=== PATIENT | female | born 2000 | race American Indian/Alaskan Native ===

== ENCOUNTER 2020-10-03 16:26 | Emergency (ER) | payer OTHER ==
[2020-10-03 16:35] VITALS: BP 131/91
--- NOTE | 2020-10-03 16:55 | Emergency Department Report ---
Blank Doc - Documentation Documentation: 20-year-old female that presents with chest pain and tightness. Denies any SOB. This initial assessment/diagnostic orders/clinical plan/treatment(s) is/are subject to change based on patient's health status, clinical progression and re- assessment by fellow clinical providers in the ED. Further treatment and workup at subsequent clinical providers discretion. Patient/guardians urged not to elope from the ED as their condition may be serious if not clinically assessed and managed. Initial orders include: 1- Patient sent to [facility] for further evaluation and treatment 2- EKG/CXR
--- NOTE | 2020-10-03 17:16 | XRay Report ---
CHEST PA AND LATERAL VIEWS INDICATION: chest pain. COMPARISON: None. FINDINGS: Support devices: None. Heart: Within normal limits. Lungs/Pleura: No acute pulmonary or pleural findings. IMPRESSION: 1. No acute findings. Signer Name: Lai Carrington MD Signed: 10/03/2020 5:11 PM Workstation Name: [id number]
--- NOTE | 2020-10-03 20:03 | Emergency Department Report ---
ED General Adult HPI - General Chief complaint: Chest Pain Stated complaint: CHESRT PAIN, HEAD PAIN, LT SHOULDER PAIN Time Seen by Provider: 10/03/20 16:54 Source: patient Mode of arrival: Ambulatory Limitations: No Limitations - History of Present Illness Initial comments: Patient is a 20-year-old female presents emergency room complaints of substernal chest pain that began 2-1/2 days ago. She states the pain is worse with movement and with lifting her arms above the head. She denies any recent travel, recent surgery, hormone use. She denies any fever, nausea, vomiting, diarrhea, cough, shortness of breath, leg swelling. No past medical history. No allergies to medications. 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 - Related Data Previous Rx's Medication Instructions Recorded Last Taken Type Acetaminophen [Tylenol] 650 mg PO Q8HR PRN #20 capsule 10/03/20 Unknown Rx Allergies Allergy/AdvReac Type Severity Reaction Status Date / Time No Known Allergies Allergy Unverified 10/03/20 16:34 ED Review of Systems ROS: Stated complaint: CHESRT PAIN, HEAD PAIN, LT SHOULDER PAIN Other details as noted in HPI Comment: All other systems reviewed and negative ED Past Medical Hx - Past Medical History Previous Medical History?: No - Surgical History Past Surgical History?: No - Medications Home Medications: Home Medications Medication Instructions Recorded Confirmed Last Taken Type Acetaminophen [Tylenol] 650 mg PO Q8HR PRN #20 capsule 10/03/20 Unknown Rx ED Physical Exam - General Limitations: No Limitations General appearance: alert, in no apparent distress - Head Head exam: Present: atraumatic, normocephalic - Eye Eye exam: Present: normal appearance - ENT ENT exam: Present: mucous membranes moist - Respiratory Respiratory exam: Present: normal lung sounds bilaterally, chest wall tenderness (reproducible mid chest wall ttp, no crepitus, no deformity, no ecchymosis, no skin changes). Absent: respiratory distress, wheezes, rales, rhonchi, stridor, accessory muscle use, decreased breath sounds, prolonged expiratory - Cardiovascular Cardiovascular Exam: Present: regular rate, normal rhythm, normal heart sounds. Absent: systolic murmur, diastolic murmur, rubs, gallop - Extremities Exam Extremities exam: Absent: pedal edema - Neurological Exam Neurological exam: Present: alert, oriented X3 - Psychiatric Psychiatric exam: Present: normal affect, normal mood - Skin Skin exam: Present: warm, dry, intact ED Course Vital Signs 10/03/20 10/03/20 16:34 22:03 Temperature 97.9 F Pulse Rate 82 78 Respiratory 16 20 Rate Blood Pressure 131/91 O2 Sat by Pulse 99 98 Oximetry ED Medical Decision Making - Lab Data Vital Signs 10/03/20 10/03/20 16:34 22:03 Temperature 97.9 F Pulse Rate 82 78 Respiratory 16 20 Rate Blood Pressure 131/91 O2 Sat by Pulse 99 98 Oximetry - EKG Data EKG shows normal: sinus rhythm, axis, intervals, QRS complexes Rate: normal - EKG Data 10/03/20 20:02 EKG is stating non specific T wave abnormalities in the anterior leads, but it appears T waves are normal in V2 and V4, do not suspect ischemia or infarction no STEMI - Radiology Data Radiology results: report reviewed Ordering Physician: ED MD LUCIA Date of Service: 10/03/20 Procedure(s): XR chest routine 2V Accession Number(s): [id number] cc: ED MD LUCIA Fluoro Time In Minutes: CHEST PA AND LATERAL VIEWS INDICATION: chest pain. COMPARISON: None. FINDINGS: Support devices: None. Heart: Within normal limits. Lungs/Pleura: No acute pulmonary or pleural findings. IMPRESSION: 1. No acute findings. Signer Name: Lai Carrington MD Signed: 10/03/2020 5:11 PM Workstation Name: [id number] Transcribed By: RAMIN Dictated By: Lai Carrington MD Electronically Authenticated By: Lai Carrington MD Signed Date/Time: 10/03/201710 DD/ 10 TD/TT: - Medical Decision Making Patient is a 20-year-old female presents emergency room complaints of substernal chest pain that began 2-1/2 days ago. She states the pain is worse with movement and with lifting her arms above the head. She denies any recent travel, recent surgery, hormone use. She denies any fever, nausea, vomiting, diarrhea, cough, shortness of breath, leg swelling. No past medical history. No allergies to medications. 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 Vitals are normal. On exam: reproducible midsternal chest wall ttp, no crepitus, no deformity, no ecchymosis, no skin changes. CXR: 1. No acute findings. EKG appears to be within normal limits. Symptoms appear most consistent with costochondritis as pain is reproducible. Do not suspect ACS, patient very low risk for cardiac event. PERC criteria negative for PE. Patient given prescription for Tylenol. Advised patient Please take medication as prescribed. Increase your water intake. May use ice pack, heating pad, rest, Epson salt bath. Follow-up with your primary care doctor. Follow-up with [facility] or resource center. Return to emergency room immediately for any new or worsening symptoms. Return to emergency room if you began experiencing abdominal pain or abnormal vaginal bleeding. Critical care attestation.: If time is entered above; I have spent that time in minutes in the direct care of this critically ill patient, excluding procedure time. ED Disposition Clinical Impression: Atypical chest pain Disposition: DC-01 TO HOME OR SELFCARE Is pt being admited?: No Does the pt Need Aspirin: No Condition: Stable Instructions: Costochondritis, Chest Pain (ED) Additional Instructions: Please take medication as prescribed. Increase your water intake. May use ice pack, heating pad, rest, Epson salt bath. Follow-up with your primary care doctor. Follow-up with [facility] or resource center. Return to emergency room immediately for any new or worsening symptoms. Return to emergency room if you began experiencing abdominal pain or abnormal vaginal bleeding. [facility] Address: [address] [facility] [facility] [address], [place] [address] Resource Center Address: [address] [place] [address] [facility] Address: [address] [place] [address] Prescriptions: Acetaminophen [Tylenol] 650 mg PO Q8HR PRN #20 capsule PRN Reason: pain Referrals: PRIMARY CAREMD [Primary Care Provider] - 2-3 Days CASSY MILTON MD [Staff Physician] - 2-3 Days [facility] [Provider Group] - 2-3 Days [facility] [Provider Group] - 2-3 Days [facility] [Provider Group] - 2-3 Days Time of Disposition: 20:03 Print Language: MACEDONIAN
== END 2020-10-03 22:03 | disposition home or self-care (01) ==
LOC: ED 16:26
DX: R07.89 Other chest pain (principal); R51.9 Headache, unspecified; Z79.899 Other long term (current) drug therapy
CPT/HCPCS: 71046; 93005